=== PATIENT | female | born 1995 | race Caucasian/White ===

== ENCOUNTER → 2017-06-05 | Outpatient (CLI) | payer OTHER | LOC: COL.RAD 11:49 | DX: N92.0 Excessive and frequent menstruation with regular cycle (principal); N93.9 Abnormal uterine and vaginal bleeding, unspecified ==

== ENCOUNTER 2018-02-19 09:32 | Day surgery (SDC) | payer OTHER ==
[~2018-02-19] VITALS: Ht 177.8 cm; Wt 80.3 kg
[2018-02-19 09:57] VITALS: BP 122/85; PULSE 69; TEMP 97.8
[2018-02-19] MEDS ORDERED: ZOVIRAX400 MG PO (09:57)
[2018-02-19] MEDS ORDERED: DASETTA 1/35 351 TAB PO (09:57)
[2018-02-19 11:25] VITALS: BP 100/71; PULSE 74; TEMP 98.3
[2018-02-19 11:40] VITALS: BP 108/58; PULSE 50
[2018-02-19 11:55] VITALS: BP 110/46; PULSE 53
[2018-02-19 12:10] VITALS: BP 117/64; PULSE 57
== END 2018-02-19 12:25 | disposition home or self-care (01) ==
LOC: SDCO 09:32
DX: R19.7 Diarrhea, unspecified (principal); R10.9 Unspecified abdominal pain; R11.0 Nausea; R14.0 Abdominal distension (gaseous); K59.00 Constipation, unspecified; Z88.0 Allergy status to penicillin
CPT/HCPCS: J2250; J3010; J7030